=== PATIENT | female | born 2000 | race Two or more races ===

== ENCOUNTER 2021-01-24 21:55 | Observation (INO) | payer BC, MEDICAID, OTHER ==
[~2021-01-24] VITALS: Ht 162.6 cm; Wt 51.4 kg
[2021-01-24 23:04] LABS: BASOPHILS % (AUTO) 0 % (0-1); EOSINOPHILS % (AUTO) 0 % (1-7); LYMPHOCYTES % (AUTO) 6 % (22-44); MEAN CORPUSCULAR HEMOGLOBIN 30.6 pg (27.0-34.8); MEAN CORPUSCULAR HGB CONC 34.3 g/dL (32.4-35.8); MEAN PLATELET VOLUME 9.3 fL (7.4-10.4); MONOCYTES % (AUTO) 5 % (2-9); NEUTROPHILS % (AUTO) 89 % (42-75); PLATELET COUNT 341 x10^3/uL (130-400); RED BLOOD COUNT 4.71 x10^6/uL (3.82-5.3); RED CELL DISTRIBUTION WIDTH 13.1 % (9.6-15.2)
[2021-01-24 23:11] LABS: ALBUMIN 4.1 g/dL (3.4-5.0); ANION GAP 8 mmol/L (5-15); CALCIUM 9.4 mg/dL (8.5-10.1); CHLORIDE 105 mmol/L (98-107)
[2021-01-25] MEDS ORDERED: MORPHINE SULFATE 4 MG/ML, 1ML IVPush PRN ×2 (01:30→03:30)
[2021-01-25] MEDS ORDERED: ONDANSETRON 2MG/ML, 2ML IVPush ONE (01:30)
[2021-01-25] MEDS ORDERED: SODIUM CHLORIDE FLUSH 10ML SYR IVF ONE (01:30)
[2021-01-25] MEDS ORDERED: SODIUM CHLORIDE 0.9% 1,000ML IVBOLUS ONE (01:30)
--- NOTE | 2021-01-25 01:43 | NUR ---
BREAK RN: PT RESTING IN ROOM. VS STABLE. NO ACUTE DISTRESS. PT READY FOR CT.
--- NOTE | 2021-01-25 02:04 | NUR ---
BREAK RN: REPORT GIVEN TO DARCIE OCONNELL
--- NOTE | 2021-01-25 02:08 | NUR ---
PATIENT REMAINS IN CT.
[2021-01-25] MEDS ORDERED: MORPHINE SULFATE 4 MG/ML, 1ML ONE (02:12)
[2021-01-25] MEDS ORDERED: ONDANSETRON 2MG/ML, 2ML ONE ×2 (02:12→06:18)
[2021-01-25] MEDS ORDERED: PIPERACILLIN/TAZO 3.375 GM in DEXTROSE 5% 50 ML IVPB ONE (03:00)
--- NOTE | 2021-01-25 03:17 | NUR ---
REPORT GIVEN TO DARCIE FISHER.
--- NOTE | 2021-01-25 03:22 | NUR ---
REPORT GIVEN TO MARE NARANJO RN IN OR.
[2021-01-25] MEDS ORDERED: SODIUM CHLORIDE 0.9% 1,000 ML IV ONE (03:30)
[2021-01-25] MEDS ORDERED: SODIUM CHLORIDE FLUSH 10ML SYR IVF PRN (03:30)
[2021-01-25] MEDS ORDERED: ONDANSETRON 2MG/ML, 2ML IVPush PRN ×2 (03:30→09:00)
[2021-01-25 03:40] VITALS: BP 105/81
[2021-01-25 03:58] VITALS: BP 105/81
[2021-01-25] MEDS ORDERED: BUPIVACAINE/PF 0.5% ONE (04:45)
[2021-01-25] MEDS ORDERED: EPINEPHRINE 1 MG/ML, 1ML ONE (04:45)
[2021-01-25] MEDS ORDERED: FENTANYL PF 100 MCG/2ML ONE ×2 (05:35→06:18)
[2021-01-25] MEDS ORDERED: MIDAZOLAM 1 MG/ML, 2ML ONE (05:36)
[2021-01-25] MEDS ORDERED: OXYC5TAB2 PO (05:46)
[2021-01-25] MEDS ORDERED: KETOROLAC 30 MG/1 ML ONE (06:06)
[2021-01-25] MEDS ORDERED: ROCURONIUM 10MG/ML,5ML ONE (06:18)
[2021-01-25] MEDS ORDERED: NEOSTIGMINE 1 MG/ML, 10ML ONE (06:18)
[2021-01-25] MEDS ORDERED: SUCCINYLCHOLINE 20 MG/ML, 10ML ONE (06:18)
[2021-01-25] MEDS ORDERED: DEXAMETHASONE 4 MG/ML, 1ML ONE (06:18)
[2021-01-25] MEDS ORDERED: CEFAZOLIN 1,000 MG ONE (06:18)
[2021-01-25] MEDS ORDERED: PROPOFOL 10 MG/ML, 20ML ONE (06:18)
[2021-01-25] MEDS ORDERED: ACETAMINOPHEN 650 MG/20.3 ML UDC ONE (06:18)
[2021-01-25] MEDS ORDERED: GLYCOPYRROLATE 0.2MG/1ML, 5ML ONE (06:18)
[2021-01-25] MEDS ORDERED: OXYcodone 5 MG/5 ML ORAL.SOL UDC ONE (06:18)
[2021-01-25] MEDS ORDERED: MEPERIDINE/PF 25MG/ML,1ML ONE (06:40)
[2021-01-25] MEDS ORDERED: OXYcodone 5 MG/5 ML ORAL.SOL UDC PO PRN ×2 (07:00→09:00)
[2021-01-25] MEDS ORDERED: DIPHENHYDRAMINE 50 MG/ML, 1ML IVPush PRN ×2 (07:00→09:00)
[2021-01-25] MEDS ORDERED: LABETALOL 5MG/ML, 20ML IV PRN (07:00)
[2021-01-25] MEDS ORDERED: PROMETHAZINE 25 MG/ML, 1ML IVPush PRN (07:00)
[2021-01-25] MEDS ORDERED: MEPERIDINE/PF 25MG/0.5ML IVPush PRN (07:00)
[2021-01-25] MEDS ORDERED: HYDROmorphone 1 MG/ML, 1ML INJ IVPush PRN (07:00)
[2021-01-25] MEDS ORDERED: HALOPERIDOL 5 MG/ML IV PRN (07:00)
[2021-01-25] MEDS ORDERED: FENTANYL PF 100 MCG/2ML IV PRN (07:00)
[2021-01-25] MEDS ORDERED: hydrALAzine 20 MG/ML, 1ML IV PRN (07:00)
[2021-01-25] MEDS ORDERED: LACTATED RINGERS 1,000 ML IV SCH (09:00)
[2021-01-25] MEDS ORDERED: KETOROLAC 30 MG/1 ML IV PRN (09:00)
== END 2021-01-25 10:19 | disposition home or self-care (01) ==
LOC: ED 01-25 03:14 → 4NE 01-25 03:28 → ED 01-25 05:24 → EDIP 01-25 05:26 → 4NE 01-25 07:28
PROVIDERS: ADMIT Surgery; ATTEND Surgery
DX: K35.80 Unspecified acute appendicitis (principal); Z20.822 Contact with and (suspected) exposure to COVID-19; K38.1 Appendicular concretions; R17 Unspecified jaundice
CPT/HCPCS: 36415; 44970; 74177; 80048; 82040; 84703; 85025; 87635; 88304; 96361; 96365; 96375; 99285; G0378; J0171; J0330; J0690; J1100; J1885; J2175; J2250; J2270; J2405; J2543; J2704; J2710; J3010; J7030; S0020

== ENCOUNTER 2021-01-31 20:54 | Emergency (ER) | payer BC ==
[~2021-01-31] VITALS: Ht 162.6 cm; Wt 49.8 kg
[~2021-01-31 20:54] MED LIST: OXYC5TAB2 PO
[2021-01-31] MEDS ORDERED: SODIUM CHLORIDE FLUSH 10ML SYR IVF ONE (21:30)
[2021-01-31] MEDS ORDERED: FAMOTIDINE 20 MG/2 ML IVPush ONE (21:30)
[2021-01-31] MEDS ORDERED: ONDANSETRON 2MG/ML, 2ML IVPush ONE (21:30)
[2021-01-31] MEDS ORDERED: SODIUM CHLORIDE 0.9% 1,000ML IVBOLUS ONE (21:30)
[2021-01-31 21:41] LABS: BASOPHILS % (AUTO) 0 % (0-1); EOSINOPHILS % (AUTO) 0 % (1-7); LYMPHOCYTES % (AUTO) 11 % (22-44); MEAN CORPUSCULAR HEMOGLOBIN 31.2 pg (27.0-34.8); MEAN PLATELET VOLUME 8.7 fL (7.4-10.4); MONOCYTES % (AUTO) 4 % (2-9); NEUTROPHILS % (AUTO) 85 % (42-75); PLATELET COUNT 331 x10^3/uL (130-400); RED BLOOD COUNT 4.83 x10^6/uL (3.82-5.3); RED CELL DISTRIBUTION WIDTH 13.3 % (9.6-15.2)
[2021-01-31 21:52] LABS: ALANINE AMINOTRANSFERASE 19 U/L (12-78); ALBUMIN 4.3 g/dL (3.4-5.0); ANION GAP 8 mmol/L (5-15); CALCIUM 9.3 mg/dL (8.5-10.1); CHLORIDE 104 mmol/L (98-107); CREATININE 0.62 mg/dL (0.55-1.02)
[2021-01-31 21:54] LABS: ALKALINE PHOSPHATASE 79 U/L (45-117); BILIRUBIN,TOTAL 0.5 mg/dL (0.2-1.0); TOTAL PROTEIN 8.7 g/dL (6.4-8.2)
[2021-01-31] MEDS ORDERED: ONDANSETRON 2MG/ML, 2ML ONE (23:32)
[2021-01-31] MEDS ORDERED: FAMOTIDINE 20 MG/2 ML ONE (23:33)
--- NOTE | 2021-01-31 23:43 | NUR ---
PT C/O FEVER/CHILL, HEADACHE, VOMITTING STOMACH ACID, BODYACHES, FATIGUE SINCE AM STATES HAS NOT BEEN AROUND OR HAD CONTACT WITH PEOPLE WITH COVID REPORTS HAVING APPEDECTOMY 6 DAYS AGO. PT SURGICAL INCISIONS DO NOT APPEAR INFECTED. ATTACHED TO MONITORS, CELINE REYES. MOTHER AT [facility]. BED IN LOW, RAILS ENGAGED, CALLL LIGHT ON LAP
[2021-02-01 02:21] VITALS: BP 101/65
--- NOTE | 2021-02-01 02:52 | NUR ---
Patient/Caregiver given discharge instructions and they have confirmed that they understand the instructions. Patient ambulatory with steady gait. NAD, all questions answered appropriately, denies additional needs at this time. No personal belongings left in room after discharge.
== END 2021-02-01 02:53 | disposition home or self-care (01) ==
LOC: ED 23:59
DX: R07.89 Other chest pain (principal); R10.13 Epigastric pain; R11.2 Nausea with vomiting, unspecified; R06.00 Dyspnea, unspecified; Z20.822 Contact with and (suspected) exposure to COVID-19
CPT/HCPCS: 36415; 71045; 80053; 83690; 84703; 85025; 85379; 93005; 96361; 96374; 96375; 99285; J2405; J7030; U0003; U0005